=== PATIENT | female | born 1975 | race Caucasian/White ===

== ENCOUNTER → 2020-05-22 09:30 | Outpatient (CLI) | payer OTHER, SELFPAY ==
[2020-05-22 15:16] LABS: COVID19 -Nasal RAPID Negative (Negative)
== END ==
PROVIDERS: Visit Provider Physician Assistant
DX: Z20.822 Contact with and (suspected) exposure to COVID-19 (principal)
CPT/HCPCS: 87635

== ENCOUNTER 2023-04-02 12:49 | Day surgery (SDC) | payer OTHER, SELFPAY ==
[2023-04-02 13:39] VITALS: BP 128/84; PULSE 88; RESP 16; TEMP 36.6
[2023-04-02] MEDS: LACTATED RINGERS 1,000 ML 120 ML IV (13:39)
--- NOTE | 2023-04-02 13:44 | PM.HP.1 ---
History of Present Illness History of Present Illness Date Patient Seen: 04/02/23 Time Patient Seen: 13:44 Chief complaint: Dx Colonoscopy Narrative: 47-year-old here for colonoscopy. I reviewed the recent note in clinic. Longstanding constipation and rectal bleeding. She did okay with a bowel prep. Meds Home Medications and Allergies Home Medications Medication Instructions Recorded Confirmed Type ALBUTEROL SULFATE (Ventolin / 2 puff INH QID ##0 06/04/10 History Proventil) CODEINE/ACETAMINOPHEN 2 tab PO QID ##0 06/04/10 History (Acetaminophen-Cod #3 Tablet) IBUPROFEN (Motrin / Advil) 800 mg PO PRN ##0 06/04/10 History Lansoprazole (Prevacid) 30 mg PO Q DAY ##0 06/04/10 History Paroxetine Hydrochloride (Paxil) 30 mg PO Q DAY ##0 06/04/10 History [BENTAL] Q DAY ##0 06/04/10 History Review of Systems Review of Systems ROS: Yes All systems reviewed with the patient and are negative except as otherwise documented Exam Const General: cooperative HENMT Head: normal to inspection Eyes General: appearance normal, both eyes and all related structures Neck Neck: normal visual inspection Chest Chest: normal inspection of the chest Resp Effort & Inspection: normal respiratory effort Cardio Rate: regular rate GI Inspection: normal to inspection Skin General: no rashes or lesions noted Neuro General: patient alert and patient awake Extrem General: normal to inspection and no pedal edema Psych Appearance: grossly normal Assessment & Plan Assessment & Plan narrative: 47-year-old female with longstanding constipation and intermittent rectal bleeding. Colonoscopy is pursued today.
--- NOTE | 2023-04-02 13:45 | PM.PREOP ---
Pre-operative Note Interval Note History & Physical reviewed/Exam performed by Physician: Yes Changes to H&P: No ASA Class (for procedural sedation): III
--- NOTE | 2023-04-02 14:35 | PM.OP.COLON ---
Operative Date/Time/Diagnoses Date of procedure: 04/02/23 Time of procedure: 14:35 Pre-op diagnosis: Chronic intermittent rectal bleeding and constipation Post-op diagnosis: same Procedure & Clinicians Study performed: Colonoscopy Same procedure as scheduled: Yes Indications: Chronic intermittent rectal bleeding and constipation Surgeon: Isma Tucker Procedure Notes SCOAP/Timeout: Done Procedure in detail: After the risks and benefits were explained, written and verbal informed consent was obtained. The patient was brought into the procedure room and placed into the left lateral decubitus position. Please see anesthesia notes for sedation details. Digital rectal examination was accomplished. The scope was introduced into the patient and advanced under direct visualization to the cecum as identified by the appendiceal orifice and ileocecal valve. The scope was slowly withdrawn to carefully examine the mucosa for any defects or lesions. Comprehensive imaging was accomplished throughout the rectum including the dentate line. The colon was decompressed, the scope was then removed from the patient who tolerated the procedure well. Adult colonoscope Bowel prep adequate Scope withdrawal time: 8 minutes Sedation minutes: 17 Specimen(s): none sent Complications: none Impression: Digital rectal examination was normal. No protruding hemorrhoids. No fissure. No mass lesions. There was no evidence of any proctitis. No evidence of colitis. Colon was normal. Terminal ileum was interrogated and normal. On direct views at the level of the anal rectum, there was perhaps grade 1 at best internal hemorrhoids. Endoscopic diagnosis 1. Minimal internal hemorrhoids 2. Otherwise visually normal colonoscopy Post-procedure Plan for aftercare: 1. Continue bowel regimen as discussed in clinic with Dr Ware. 2. Follow up GI clinic to discuss reflux 3. Repeat colonoscopy 10 years for colon cancer screening. Disposition: PACU
[2023-04-02 14:38] VITALS: BP 120/81; PULSE 82; RESP 12; TEMP 36.6; O2SAT 97
[2023-04-02 14:43] VITALS: BP 118/79; PULSE 82; RESP 99; O2SAT 12
[2023-04-02 14:48] VITALS: BP 117/79; PULSE 77; RESP 16; O2SAT 97
[2023-04-02 14:55] VITALS: BP 116/86; PULSE 70; RESP 13; O2SAT 99
== END 2023-04-02 15:06 | disposition home or self-care (01) ==
PROVIDERS: PCP Nurse Practitioner Family; Referring Provider Internal Medicine Gastroenterology; Visit Provider Internal Medicine Gastroenterology
PROC: 0DJD8ZZ Inspection of Lower Intestinal Tract, Via Natural or Artificial Opening Endoscopic (ICD-10-PCS; CPT 45378; principal; 2023-04-02 14:00)
DX: K62.5 Hemorrhage of anus and rectum (principal); K59.00 Constipation, unspecified; K21.9 Gastro-esophageal reflux disease without esophagitis; K64.8 Other hemorrhoids
CPT/HCPCS: 45378; J2704